=== PATIENT | female | born 1980 | race Caucasian/White ===

== ENCOUNTER 2018-01-20 09:03 | Outpatient (CLI) | payer OTHER ==
[~2018-01-20] VITALS: Ht 157.5 cm; Wt 106.6 kg
[2018-01-20] MEDS ORDERED: MULT-985 PO (09:45)
[2018-01-20] MEDS ORDERED: MULT-974 PO (09:45)
== END 2018-01-20 09:56 ==
LOC: PREOP 09:03
PROVIDERS: ATTEND Surgery
DX: Z01.818 Encounter for other preprocedural examination (principal); E66.01 Morbid (severe) obesity due to excess calories; Z68.41 Body mass index [BMI] 40.0-44.9, adult

== ENCOUNTER 2018-01-28 06:41 | Day surgery (SDC) | payer OTHER ==
[~2018-01-28] VITALS: Ht 157.5 cm; Wt 106.6 kg
[~2018-01-28 06:41] MED LIST: MULT-974 PO; MULT-985 PO
--- OUTSIDE RECORDS SUMMARY | 2018-01-28 06:45 | XMS REPORT | Continuity of Care Document ---
Author Author [facility] Organization [facility] Address Unknown Phone Unavailable Allergies There is no data. Medications There is no data. Problems Date Dx Coded Attending Type Code Diagnosis Diagnosed By 01/12/2017 TORI HALL E66.9 Obesity, unspecified 01/12/2017 TORI HALL K59.09 Other constipation 01/12/2017 TORI HALL Z00.00 Encntr for general adult medical exam w/o abnormal findings 09/10/2017 TORI HALL K21.9 Gastro-esophageal reflux disease without esophagitis Procedures Code [place] [address] ROUTINE VENIPUNCTURE HAWK KIDD TORI L 01/12/2017 18107 COMPREHEN METABOLIC PANEL ARECHIGA SUPPLY ASSISTANT, TORI L 01/12/2017 83233 LIPID PANEL HAWK KIDD TORI L 01/12/2017 24692 ASSAY THYROID STIM HORMONE HAWK KIDD TORI L 01/12/2017 12476 COMPLETE CBC W/AUTO DIFF WBC HAWK KIDD TORI L 01/12/2017 95591 X-RAY UPPER GI DELAY W/KUB HAWK KIDD TORI L 09/10/2017 Results There is no data. Encounters ACCT No. Visit Date/Time Discharge Status Pt. Type Provider Facility Loc./Unit Complaint [id number] 09/10/2017 08:03:00 09/10/2017 08:03:00 DIS Outpatient TORI HALL [facility] RAD [id number] 01/12/2017 10:14:00 01/12/2017 10:14:00 DIS Outpatient TORI HALL [facility] LAB
--- OUTSIDE RECORDS SUMMARY | 2018-01-28 06:45 | XMS REPORT ---
Author Author [facility] Medical Staff Organization [facility] Address [address] [place] [id number] Phone [phone] Care Team Providers Care Continuous Improvement Specialist Name Role Phone TORI HALL PP [phone] Summary purpose CCDA Sent to [facility] Chief Complaint and Reason for Visit Admit Diagnosis 1 OBESITY CONSTIPATION Problem list No authorized problems tracked for continuity of care are available for this visit. Encounters No authorized problems tracked for encounter diagnoses are available for this visit. Medications No medications recorded for this patient visit Allergies, adverse reactions, alerts No allergy information is available for this patient. Immunizations No immunizations recorded for this patient visit Relevant diagnostic tests and/or laboratory data No authorized results are available for this patient visit History of procedures Procedure Code Code Type Description Date Performed Performing Physician 12482 CPT-4 COMPREHEN METABOLIC PANEL 01-12-2017 TORI ARECHIGA 94608 CPT-4 LIPID PANEL 01-12-2017 TORI ARECHIGA 12770 CPT-4 ASSAY THYROID STIM HORMONE 01-12-2017 TORI ARECHIGA 58261 CPT-4 COMPLETE CBC W/AUTO DIFF WBC 01-12-2017 TORI ARECHIGA Functional status No functional or cognitive status observations are available for this visit. Vital signs No authorized vital signs are available for this visit. Social history No Social History or smoking status observations were recorded for this visit. ( Unknown if ever smoked.) Treatment Plan No treatment plan text is available for this visit. Hospital discharge instructions No discharge instruction text is available for this visit.
--- OUTSIDE RECORDS SUMMARY | 2018-01-28 06:45 | XMS REPORT ---
Author Author [facility] Medical Staff Organization [facility] Address [address] [id number] Phone [phone] Care Team Providers Care Chief Analytics Officer Name Role Phone TORI HALL PP [phone] Summary purpose CCDA Sent to [facility] Chief Complaint and Reason for Visit No authorized Reason for Visit (Admitting Diagnosis) is available for this visit. Problem list No authorized problems tracked for [...] Code Type Description Date Performed Performing Physician 66688 CPT-4 X-RAY EXAM, UPPER GI TRACT 09-10-2017 TORI ARECHIGA Functional status No functional or [...]
[2018-01-28] MEDS ORDERED: ceFAZolin INJECTION 1,000 MG in NS (IVPB) 50 ML IV ONE (07:00)
[2018-01-28 07:17] LABS: BASOPHILS # (AUTO) 0.1 10^3/uL (0.0-0.1); BASOPHILS % (AUTO) 1 % (0-10); EOSINOPHILS # (AUTO) 0.3 10^3/uL (0.0-0.3); EOSINOPHILS % (AUTO) 5 % (0-10); HEMATOCRIT 37 % (35-52); HEMOGLOBIN 13.1 G/DL (11.5-16.0); LYMPHOCYTES # (AUTO) 2.5 X 10^3 (1.0-4.0); LYMPHOCYTES % (AUTO) 38 % (12-44); MEAN CORPUSCULAR HEMOGLOBIN 31 PG (25-34); MEAN CORPUSCULAR HGB CONC 35 G/DL (32-36); MEAN CORPUSCULAR VOLUME 88 FL (80-99); MEAN PLATELET VOLUME 9.6 FL (7.4-10.4); MONOCYTES # (AUTO) 0.6 X 10^3 (0.0-1.0); MONOCYTES % (AUTO) 8 % (0-12); NEUTROPHILS # (AUTO) 3.3 X 10^3 (1.8-7.8); NEUTROPHILS % (AUTO) 49 % (42-75); PLATELET COUNT 218 10^3/uL (130-400); RED BLOOD COUNT 4.22 10^6/uL (4.35-5.85); RED CELL DISTRIBUTION WIDTH 12.4 % (10.0-14.5); WHITE BLOOD COUNT 6.7 10^3/uL (4.3-11.0)
[2018-01-28] MEDS: LACTATED RINGERS 1,000 ML IV PRN ×3 (07:17→10:52)
[2018-01-28] MEDS ORDERED: MIDAZOLAM 2 MG/2 ML (VERSED) VIAL ONE (07:19)
[2018-01-28] MEDS ORDERED: ONDANSETRON 4 MG/2 ML (SDV) Z0FRAN ONE (07:19)
[2018-01-28] MEDS ORDERED: LIDOCAINE PF 2% 5 ML (XYLOCAINE) VIAL ONE (07:19)
[2018-01-28] MEDS ORDERED: DEXAMETHASONE 10 MG/ML (DECADRON) 1 ML VIAL ONE (07:19)
[2018-01-28] MEDS ORDERED: proPOfol 200 MG/20 ML (DIPRIVAN) VIAL IV ONE (07:19)
[2018-01-28] MEDS ORDERED: fentaNYL INJECTION 100 MCG/2 ML AMP ONE ×2 (07:19→10:00)
[2018-01-28] MEDS ORDERED: ROCURONIUM 10 MG/ML 5 ML SYRINGE IV ONE (07:19)
[2018-01-28] MEDS ORDERED: SEVOFLURANE (ULTANE) 15 ML INHAL SOLN ONE ×2 (07:19→10:04)
[2018-01-28] MEDS ORDERED: BUP/EPI 0.5% 1:200,000 (SENSORCAINE) 30 ML VIAL ONE (07:58)
[2018-01-28] MEDS ORDERED: NS IV 1000 ML 1,000 ML IV SCH (07:58)
--- NOTE | 2018-01-28 07:58 | Progress Note-Pre Operative ---
Pre-Operative Progress Note H&P Reviewed The H&P was reviewed, patient examined and no changes noted. Date Seen by Provider: Jan 28, 2018 Time Seen by Provider: 07:45 Date H&P Reviewed: Jan 28, 2018 Time H&P Reviewed: 07:50 Pre-Operative Diagnosis: Morbid obesity, hyperlipidemia, anxiety ELOINA ESPARZA APRN Jan 28, 2018 7:58 am
[2018-01-28] MEDS ORDERED: ONDANSETRON 4 MG/2 ML (SDV) Z0FRAN IV PRN (08:00)
[2018-01-28] MEDS ORDERED: fentaNYL INJECTION 1,000 MCG in NS (IVPB) 80 ML IV SCH (08:00)
[2018-01-28] MEDS ORDERED: oxyCODONE 20 MG/1 ML ORAL CONC (RoxiCODONE) CHARGE PER 1 ML PO PRN (08:00)
[2018-01-28] MEDS ORDERED: RT-ALBUTEROL SULF 2.5 MG/3 ML PRE-MIX VIAL INH SCH (08:00)
[2018-01-28] MEDS ORDERED: METOCLOPRAMIDE INJ 10 MG/2 ML (REGLAN) IV PRN (08:00)
[2018-01-28] MEDS ORDERED: diphenhydrAMINE 50 MG/ML INJ (BENADRYL) IV PRN (08:00)
[2018-01-28] MEDS ORDERED: NALOXONE 0.4 MG/ML 1 ML (NARCAN) VIAL IV PRN (08:00)
[2018-01-28] MEDS ORDERED: GLYCOPYRROLATE 0.2 MG/ML (ROBINUL) 2 ML VIAL ONE (10:04)
[2018-01-28] MEDS ORDERED: NEOSTIGMINE 1 MG/ML 5 ML SYRINGE ONE (10:04)
--- NOTE | 2018-01-28 10:08 | Progress Note-Post Operative ---
Post-Operative Progess Note Surgeon (s)/Kiln Mechanic (s) Surgeon MALLY CASTRO MD Kiln Mechanic: michael yanes SUPERVISOR BENZENE REFINING Pre-Operative Diagnosis Morbid obesity, hyperlipidemia, anxiety Post-Operative Diagnosis same Procedure & Operative Findings Date of Procedure 01/28/18 Procedure Performed/Findings laparoscopic gastric sleeve resection. Anesthesia Type GET Estimated Blood Loss Estimated blood loss (mL): minimal Specimens/Packing Specimens Removed stomach MALLY CASTRO MD Jan 28, 2018 10:07 am
--- NOTE | 2018-01-28 10:10 | Discharge Inst-Surgical ---
D/C Lap Instructions-GLORIA Follow Up Appt in 2 weeks Activity as tolerated No driving for 24 hours No driving while on pain medications Incentive Spirometry use every 2 hours while awake Phase 1 clear liqud Diet 2 weeks. Symptoms to Report: Fever over 101 degree F, Nausea/Vomiting Infection Signs and Symptoms to report: Increased redness, Foul odor of wound, Increased drainage Bathing instructions: May shower Operative Area Clean/Dry; Keep incision clean/dry If any problems/questions: Contact your physician or go to Emergency Room MALLY CASTRO MD Jan 28, 2018 10:10 am
[2018-01-28] MEDS ORDERED: ONDANSETRON 4 MG/2 ML (SDV) Z0FRAN IVP PRN (10:30)
[2018-01-28] MEDS ORDERED: HYDROmorphone (DILAUDID) 2 MG/ML VIAL IVP PRN (10:30)
[2018-01-28] MEDS: morphine INJ 10 MG/ML 1ML (SYR OR VIAL) IVP PRN ×2 (10:44→10:50)
[2018-01-28 12:00] VITALS: BP 110/64
[2018-01-28] MEDS: PANTOPRAZOLE 40 MG/10 ML (PROTONIX) VIAL IVP SCH (12:52)
[2018-01-28] MEDS: SENNA W/DOCUSATE (SENOKOT S) TABLET PO SCH (12:58)
[2018-01-28] MEDS: ceFAZolin 2 GM IV Premixed 50 ML IV SCH ×2 (16:29→22:21)
[2018-01-28 16:35] VITALS: BP 126/62
--- NOTE | 2018-01-28 17:24 | OPERATIVE REPORT ---
DATE OF SERVICE: 01/28/2018 ATTENDING ACCESS MANAGER: Jannie Osorio APRN. PREOPERATIVE DIAGNOSES: Morbid obesity, hyperlipidemia, anxiety. POSTOPERATIVE DIAGNOSIS: Morbid obesity, hyperlipidemia, anxiety. PROCEDURE: Laparoscopic gastric sleeve resection. SURGEON: Dr. Castro. MANAGER ROOM: Pablo Ray APRN. ANESTHESIA: General endotracheal. ESTIMATED BLOOD LOSS: Minimal. FINDINGS: Normal appearing stomach, liver, omentum and small bowel. DISPOSITION: The patient tolerated the procedure well. INDICATIONS: The patient is a 37-year-old female with morbid obesity, who is in our surgical weight loss program for the laparoscopic gastric sleeve resection and meets the medical criteria for bariatric surgery. She has been overweight the majority of her life and even overweight as a child. She began to gain the majority of her overweight starting in middle school. She has tried a number of diet and exercise attempts with no success. She has tried diet programs including Atkins low calorie portion sizing and would have some success; however, would regain the weight back as well as more. She has tried exercise regimens including walking, running, aerobic classes with minimal success. She has tried several rounds of medications including phentermine and again had some success; however, after the medication was discontinued, she would regain the weight back as well as more. Her medical comorbidities include hyperlipidemia and anxiety. DESCRIPTION OF PROCEDURE: The patient was brought to the operating room, laid supine on the table. After adequate IV pain and sedating medications, the abdomen was prepped and draped in standard surgical fashion. A 0.5% Marcaine with epinephrine was used to anesthetize the overlying skin. In the left upper abdominal quadrant, a small transverse skin incision made using a 15 blade. A 0 silk suture was applied to the medial aspect of the incision for retraction and a Veress needle inserted with a low opening pressure of 0 mmHg and the abdomen was then insufflated to 15 mmHg pressure. Veress needle removed and a 5 mm Xcel trocar placed followed by a 5 mm 45-degree angled laparoscope visualizing the peritoneal cavity. A 4-quadrant abdominal exploration was performed. What was visualized the liver, gallbladder, omentum, stomach, small bowel appeared normal. Under direct visualization, we then proceeded to place a midabdominal left of midline 10 mm port after the skin and peritoneal lining were anesthetized with 0.5% Marcaine with epinephrine and a transverse skin incision made using a 15 blade. In a similar manner, a midabdominal right of midline 15 mm port was placed followed by a 5 mm right upper abdominal quadrant port. The epigastric region was then anesthetized and then a small transverse skin incision made using 11 blade. A tract was then created through the abdominal layers using a trocar to a 5 mm port. Through this opening, a medium sized Nathansen liver retractor was placed. The left lobe of the liver was then retracted anteriorly and superiorly. The patient was then placed in steep reverse Trendelenburg position. We then measured 6 cm from the pylorus along the greater curvature and marked this with a marking pen. We then proceeded to open the gastrohepatic ligament next to the stomach entering the lesser sac. We then proceeded with caudal dissection until we were approximately 2 cm below our marking and then proceeded with cephalad dissection taking down the short gastric vessels as well as the angle of His connective tissue fibers. A 42-Wallisian bougie was then placed under direct visualization and directed into the pylorus. We then proceeded with our gastric sleeve resection first using a ANSHUL 45 mm black load followed by 360 mm purple loads completing our gastric sleeve resection. Good hemostasis was observed. The staple line corners were then clipped using 5 mm clips and Tisseel fibrin glue was placed on the staple line and the omentum placed over the staple line. The stomach was then removed through the 15 mm port site. The fascia and peritoneum to the 10 and 15 mm port sites were then closed under direct visualization using a Juancarlos-Miya device and 0 Vicryl suture. Abdomen was desufflated and remaining ports were removed. All skin incisions were closed using 4-0 Monocryl running subcuticular sutures. The bougie was removed as well. Wounds were then cleaned and covered with Dermabond. The patient tolerated the procedure well. We will start IV and oral pain medication as well as pain control with a TOMATO PULPER OPERATOR with fentanyl. We will also proceed with DVT prophylaxis with Lovenox injections, calf SCDs as well as early ambulation. Tomorrow morning, we will start a phase I clear liquid diet and when she is able to tolerate 60 mL of fluid every half hour, has good pain control with oral pain medications, ambulating well, we will discharge her home. She will be instructed to follow a phase I clear liquid diet for the next 2 weeks postoperatively as well. Job ID: [id number] DocumentID: [id number] Dictated Date: 01/28/2018 10:22:02 Container Coordinator Date: 01/28/2018 17:23:11 Dictated By: MALLY CASTRO MD [facility]
[2018-01-28 20:27] VITALS: BP 120/78
[2018-01-29] VITALS: BP 109/57
[2018-01-29 04:00] VITALS: BP 125/68
[2018-01-29] MEDS: ceFAZolin 2 GM IV Premixed 50 ML IV SCH (05:48)
[2018-01-29 06:43] LABS: MEAN PLATELET VOLUME 9.9 FL (7.4-10.4); RED BLOOD COUNT 3.88 10^6/uL (4.35-5.85); RED CELL DISTRIBUTION WIDTH 12.3 % (10.0-14.5)
[2018-01-29 08:00] VITALS: BP 119/64
[2018-01-29] MEDS: SENNA W/DOCUSATE (SENOKOT S) TABLET PO SCH (09:35)
[2018-01-29] MEDS: PANTOPRAZOLE 40 MG/10 ML (PROTONIX) VIAL IVP SCH (09:35)
--- NOTE | 2018-01-29 09:59 | Progress Note (SOAP) ---
Subjective Date Seen by Provider: Jan 29, 2018 Time Seen by Provider: 09:50 Subjective/Events-last exam doing well. tolerating phase 1 clear liquids. pain controlled. Objective Exam Vital Signs Date Time Temp Pulse Resp B/P (MAP) Pulse Ox O2 Delivery O2 Flow Rate FiO2 01/29/18 08:00 97.4 49 16 119/64 (82) 99 Room Air 01/29/18 07:00 60 01/29/18 06:05 20 01/29/18 04:00 98.2 50 16 125/68 (87) 96 Room Air 01/29/18 01:00 45 01/29/18 00:00 98.1 51 12 109/57 (74) 98 Room Air 01/28/18 22:00 20 01/28/18 20:27 98.1 55 20 120/78 (92) 98 Room Air 01/28/18 19:00 49 01/28/18 16:52 47 01/28/18 16:35 97.0 46 20 126/62 (83) 99 Room Air 01/28/18 12:00 96.0 50 18 110/64 (79) 97 Room Air I & O 01/29/18 07:00 Intake Total 3200 ml Output Total 795 ml Balance 2405 ml Capillary Refill : General Appearance: No Apparent Distress HEENT: PERRL/EOMI Neck: Full Range of Motion Respiratory: Chest Non Tender, Lungs Clear Cardiovascular: Regular Rate, Rhythm Gastrointestinal: normal bowel sounds, soft, tenderness Extremity: Normal Capillary Refill Neurologic/Psychiatric: Alert, Oriented x3 Skin: Normal Color Lymphatic: No Adenopathy Results Lab Laboratory Tests 01/28/18 13:26: Glucometer 122H 01/28/18 16:19: Glucometer 116H 01/28/18 20:00: Glucometer 107 01/29/18 00:27: Glucometer 89 01/29/18 04:17: Glucometer 83 01/29/18 06:33: White Blood Count 13.0H, Red Blood Count 3.88L, Hemoglobin 12.0, Hematocrit 35, Mean Corpuscular Volume 89, Mean Corpuscular Hemoglobin 31, Mean Corpuscular Hemoglobin Concent 35, Red Cell Distribution Width 12.3, Platelet Count 201, Mean Platelet Volume 9.9 01/29/18 08:43: Glucometer 90 Assessment/Plan Assessment/Plan Assess & Plan/Chief Complaint s/p laparoscopic gastric sleeve resection. continue phase 1 clear liquid diet for 2 weeks. ambulate. f/u in office in 2 weeks. MALLY CASTRO MD Jan 29, 2018 9:59 am
--- NOTE | 2018-01-29 11:04 | Anesthesia-General Post-Op ---
General Patient Condition Mental Status/LOC: Same as Preop Cardiovascular: Satisfactory Nausea/Vomiting: Absent Respiratory: Satisfactory Pain: Controlled Complications: Absent Post Op Complications Complications None Follow Up Care/Instructions Patient Instructions None needed. Anesthesia/Patient Condition Patient Condition Patient is doing well, no complaints, stable vital signs, no apparent adverse anesthesia problems. No complications reported per nursing. DEWEY ARECHIGA CRNA Jan 29, 2018 11:04
[2018-01-29 12:00] VITALS: BP 121/67
[2018-01-29 14:25] VITALS: BP 121/67
== END 2018-01-29 14:25 | disposition home or self-care (01) ==
LOC: SDC 06:41 → 4TH 11:30 → SDC 01-29 14:25
PROVIDERS: ATTEND Surgery
DX: E66.01 Morbid (severe) obesity due to excess calories (principal); Z68.41 Body mass index [BMI] 40.0-44.9, adult; E78.5 Hyperlipidemia, unspecified; F41.9 Anxiety disorder, unspecified; Z87.891 Personal history of nicotine dependence; Z79.899 Other long term (current) drug therapy
CPT/HCPCS: 36415; 82962; 84703; 85025; 85027; 87081; 88307; 94664